=== PATIENT | male | born 1985 | race Caucasian/White ===

== ENCOUNTER 2018-10-05 11:41 | Day surgery (SDC) | payer BC ==
[~2018-10-05] VITALS: Ht 175.3 cm; Wt 94.4 kg
[2018-10-05 13:33] VITALS: Ht 175.3 cm; Wt 94.4 kg
[2018-10-05 14:00] VITALS: BP 127/74; PULSE 77; RESP 15
[2018-10-05] MEDS ORDERED: PROPOFOL 60 ML ONE (15:24)
[2018-10-05] MEDS ORDERED: LIDOCAINE 2% (SDV) 5 ML INJ ONE (15:24)
--- NOTE | 2018-10-05 15:24 | PREAC ---
Date/Time of Note Date/Time of Note DATE: 10/05/18 TIME: 15:23 Anesthesia Eval and Record Evaluation Time Pre-Procedure Interview DATE: 10/05/18 TIME: 15:23 Age 33 Sex male NPO: 8 hrs Preoperative diagnosis Abdominal pain, colon screening Planned procedure EGD, colonoscopy Past Medical History Past Medical History: Includes Cardio: Dyslipidemia GI: Morbid obesity Surgery & Anesthesia Issues No known issue Meds Anticoagulation: No Beta Jony within 24 hr: No Reason Beta Jony not given: Pt. not on B-Jony Reported Medications [None] No Conflict Check 10/05/18 Meds reviewed: Yes Allergies Coded Allergies: No Known Allergy (Unverified , 10/05/18) Allergies Reviewed: Yes Labs/Studies Labs Reviewed: Reviewed by anesthesiologist test: N/A Studies: ECG Pre-procedure Exam Last vitals Vital Signs Date Temp Pulse Resp B/P (MAP) Pulse Ox O2 O2 Flow FiO2 Time Delivery Rate 10/05/18 77 15 127/74 98 Room Air 14:00 (91) Airway: Adequate mouth opening, Adequate thyromental dist Mallampati: Mallampati II Teeth: Normal Lung: Normal Heart: Normal ASA Physical Status ASA physical status: 2 Emergency: None Planned Anesthetic General/MAC: MAC Planned Pain Management Parenteral pain med Pre-operative Attestations Prior to commencing anesthesia and surgery, the patient was re-evaluated, there was verification of: *The patient's identity *The results of appropriate recent lab work and preoperative vital signs *The above evaluation not changing prior to induction *Anesthetic plan, risk benefits, alternative and complications discussed with patient/family; questions answered; patient/family understands, accepts and wishes to proceed. JOSE GONZALEZ MD Oct 05, 2018 15:24
--- NOTE | 2018-10-05 15:47 | PAC ---
Date/Time of Note Date/Time of Note DATE: 10/05/18 TIME: 15:47 Post-Anesthesia Notes Post-Anesthesia Note Last documented vital signs Vital Signs Date Temp Pulse Resp B/P (MAP) Pulse Ox O2 O2 Flow FiO2 Time Delivery Rate 10/05/18 77 15 127/74 98 Room Air 14:00 (91) Activity: WNL Respiratory function: WNL Cardiovascular function: WNL Mental status: Baseline Pain reasonably controlled: Yes Hydration appropriate: Yes Nausea/Vomiting absent: Yes Comments BP:124/67, P:78, Spo2:100%, T:98,9 JOSE GONZALEZ MD Oct 05, 2018 15:47
[2018-10-05 16:17] VITALS: BP 124/91; RESP 15
== END 2018-10-05 18:24 | disposition home or self-care (01) ==
LOC: EDSEX 11:41 → GIL 11:41
PROVIDERS: ATTEND Internal Medicine Gastroenterology
DX: K64.8 Other hemorrhoids (principal); K21.0 Gastro-esophageal reflux disease with esophagitis; K29.00 Acute gastritis without bleeding; E78.5 Hyperlipidemia, unspecified; E66.01 Morbid (severe) obesity due to excess calories; Z68.30 Body mass index [BMI] 30.0-30.9, adult
CPT/HCPCS: 43239; 45380; 88305; 88312; Z7610